=== PATIENT | female | born 1990 | race African-American/Black ===

== ENCOUNTER 2018-03-09 10:32 | Emergency (ER) | payer BC ==
[2018-03-09 11:27] LABS: #Basophils 0.1 thou/uL (0.0-0.2); #Eosinphils 0.1 thou/uL (0.0-0.7); #Lymphocytes 1.8 thou/uL (1.20-3.40); #Monocytes 0.6 thou/uL (0.11-0.59); #Neutrophils 7.7 thou/uL (1.40-6.50); %Basophils 0.7 % (0.0-1.0); %Eosinophils 0.6 % (0.0-10.0); %Lymphocytes 17.4 % (21.0-51.0); %Monocytes 5.5 % (0.0-10.0); %Neutrophils 75.9 % (42.0-75.0); Hemoglobin 12.1 g/dL (12.0-16.0); Mean Corpuscular HGB CONC 32.3 g/dL (32.0-36.0); Mean Corpuscular Hemoglobin 27.2 pg (27.0-31.0); Mean Corpuscular Volume 84.2 fl (81.0-99.0); Mean Platelet Volume 7.8 fL (7.4-10.4); Platelet Count 249 thou/uL (130-400); RBC Distribution Width 12.1 % (11.5-14.5); Red Blood Cell (RBC) Count 4.46 mill/uL (4.20-5.40); White Blood Cell (WBC) Count 10.2 thou/uL (4.8-10.8)
[2018-03-09 11:51] LABS: ALT (SGPT) 13 U/L (8-55); AST (SGOT) 22 U/L (5-34); Acetaminophen Less than 6.0 mcg/mL (10.0-30.0); Albumin 4.5 g/dL (3.5-5.0); Alcohol Less than 10 mg/dL (Less than 10); Alkaline Phosphatase 63 U/L (40-150); Anion Gap 13 mmol/L (10-20); BUN (Urea Nitrogen) 11 mg/dL (7.0-18.7); Bilirubin, Total 0.6 mg/dL (0.2-1.2); Calc. Creatinine Clearance 0 mL/min (70-130); Calcium 9.5 mg/dL (7.8-10.44); Carbon Dioxide 23 mmol/L (22-29); Chloride 108 mmol/L (98-107); Estimated GFR-MDRD Greater than 90; Glucose 117 mg/dL (70-105); Potassium 3.7 mmol/L (3.5-5.1); Protein, Total 7.5 g/dL (6.0-8.3); Salicylate Less than 8.0 mg/dL (15.0-30.0); Sodium 140 mmol/L (136-145)
[2018-03-09 11:52] LABS: Acetaminophen Less than 6.0 mcg/mL (10.0-30.0); Alcohol Less than 10 mg/dL (Less than 10); Salicylate Less than 8.0 mg/dL (15.0-30.0)
[2018-03-09 14:04] LABS: Bilirubin Negative (Negative); Blood, Urine Negative (Negative); Clarity CLOUDY (Clear); Glucose, Urine (Dipstick) Negative (Negative); Leukocyte Negative (Negative); Nitrite Negative (Negative); Protein, Urine (Dipstick) Negative (Neg-Trace); Specific Gravity, Urine 1.028 (1.002-1.036)
[2018-03-09 14:08] LABS: Pregnancy Test - Urine (BHCG) Negative (Negative); Specific Gravity 1.028 (1.002-1.036)
[2018-03-09 14:09] LABS: Pregu Control Background? CLEAR/WHITE (CLR/WHITE); Pregu Control Bar Appear? YES (CONTROL BAR)
[2018-03-09 14:14] LABS: Amphetamine Not Detected (NotDetected); Barbiturates Screen Not Detected (NotDetected); Benzodiazepine Screen Detected (NotDetected); Cocaine Metabolite Screen Not Detected (NotDetected); Medtox Control Line Valid? VALID (VALID); Medtox Reader # READER 1; Methadone Not Detected (NotDetected); Methamphetamine Not Detected (NotDetected); Opiate Screen Not Detected (NotDetected); Oxycodone Screen Not Detected (NotDetected); Phencyclidine (PCP) Not Detected (NotDetected); THC/Cannabinoid Screen Detected (NotDetected); Tricyclic Screen Not Detected (NotDetected)
[2018-03-09] MEDS ORDERED: Lorazepam 2 MG/ML VIAL ONE (20:17)
[2018-03-09] MEDS ORDERED: Haloperidol Lactate 5 MG/ML VIAL ONE (20:17)
[2018-03-09] MEDS ORDERED: diphenhydrAMINE 50 MG/ML VIAL ONE (20:17)
== END 2018-03-09 21:42 ==
LOC: ERS 10:32
DX: F31.9 Bipolar disorder, unspecified (principal)
CPT/HCPCS: 36415; 80053; 80306; 80307; 81003; 81025; 84443; 85025; 93005; 96372; J1200; J1630; J2060

== ENCOUNTER 2018-08-16 19:54 | Emergency (ER) | payer BC ==
[2018-08-16] MEDS ORDERED: Lorazepam 2 MG/ML VIAL ONE (20:31)
[2018-08-16 20:54] LABS: Amphetamine Not Detected (NotDetected); Barbiturates Screen Not Detected (NotDetected); Benzodiazepine Screen Not Detected (NotDetected); Cocaine Metabolite Screen Not Detected (NotDetected); Medtox Control Line Valid? VALID (VALID); Medtox Reader # READER 1; Methadone Not Detected (NotDetected); Methamphetamine Not Detected (NotDetected); Opiate Screen Not Detected (NotDetected); Oxycodone Screen Not Detected (NotDetected); Phencyclidine (PCP) Not Detected (NotDetected); THC/Cannabinoid Screen Detected (NotDetected); Tricyclic Screen Not Detected (NotDetected)
[2018-08-16 20:57] LABS: Acetaminophen Less than 6.0 mcg/mL (10.0-30.0); Alcohol Less than 10 mg/dL (Less than 10); Salicylate Less than 8.0 mg/dL (15.0-30.0)
[2018-08-16 20:59] LABS: Band 3 % (5-11); Hemoglobin 13.1 g/dL (12.0-16.0); Lymphocytes 14 % (21-51); MDiff Complete? YES; Mean Corpuscular HGB CONC 31.4 g/dL (32.0-36.0); Mean Platelet Volume 8.4 fL (7.4-10.4); Monocytes 3 % (0-10); Neutrophil 80 % (42-75); Platelet Count 268 thou/uL (130-400); RBC Distribution Width 12.1 % (11.5-14.5); Red Blood Cell (RBC) Count 4.84 mill/uL (4.20-5.40); White Blood Cell (WBC) Count 12.7 thou/uL (4.8-10.8)
[2018-08-16 21:03] LABS: Troponin I Less than 0.010 ng/mL (< 0.028)
[2018-08-16 21:13] LABS: ALT (SGPT) 14 U/L (8-55); AST (SGOT) 15 U/L (5-34); Albumin 4.7 g/dL (3.5-5.0); Alkaline Phosphatase 57 U/L (40-150); Anion Gap 12 mmol/L (10-20); BUN (Urea Nitrogen) 12 mg/dL (7.0-18.7); Bilirubin, Total 0.5 mg/dL (0.2-1.2); CK (CPK) 127 U/L (29-168); Calc. Creatinine Clearance 0 mL/min (70-130); Calcium 9.6 mg/dL (7.8-10.44); Carbon Dioxide 26 mmol/L (22-29); Chloride 104 mmol/L (98-107); Estimated GFR-MDRD 84; Globulin 2.9 g/dL (2.4-3.5); Glucose 134 mg/dL (70-105); Protein, Total 7.6 g/dL (6.0-8.3); Sodium 138 mmol/L (136-145)
== END 2018-08-16 22:43 | disposition home or self-care (01) ==
LOC: ERS 19:54
DX: T40.7X1A Poisoning by cannabis (derivatives), accidental (unintentional), initial encounter (principal); T50.3X1A Poisoning by electrolytic, caloric and water-balance agents, accidental (unintentional), initial encounter; F31.9 Bipolar disorder, unspecified; F20.9 Schizophrenia, unspecified
CPT/HCPCS: 80053; 80306; 80307; 82550; 82553; 84484; 85025; 93005; 96361; 96374; J2060

== ENCOUNTER 2018-08-24 10:03 | Inpatient (IN) | payer BC, OTHER ==
[2018-08-24 11:35] LABS: #Lymphocytes 1.2 thou/uL (1.20-3.40); #Neutrophils 8.4 thou/uL (1.40-6.50); %Basophils 0.4 % (0.0-1.0); %Eosinophils 0.2 % (0.0-10.0); %Lymphocytes 11.6 % (21.0-51.0); %Monocytes 9.4 % (0.0-10.0); %Neutrophils 78.4 % (42.0-75.0); Hemoglobin 12.9 g/dL (12.0-16.0); Mean Corpuscular HGB CONC 31.5 g/dL (32.0-36.0); Mean Corpuscular Hemoglobin 27.1 pg (27.0-31.0); Mean Corpuscular Volume 86.2 fL (78.0-98.0); Mean Platelet Volume 8.2 fL (7.4-10.4); Platelet Count 267 thou/uL (130-400); RBC Distribution Width 12.3 % (11.5-14.5); Red Blood Cell (RBC) Count 4.77 mill/uL (4.20-5.40); White Blood Cell (WBC) Count 10.7 thou/uL (4.8-10.8)
[2018-08-24 11:49] LABS: BHCG - Serum Negative (NEGATIVE); Pregs Control Background? CLEAR/WHITE (CLR/WHITE); Pregs Control Bar Appear? YES (CONTROL BAR)
[2018-08-24 11:52] LABS: ALT (SGPT) 87 U/L (8-55); AST (SGOT) 242 U/L (5-34); Acetaminophen Less than 6.0 mcg/mL (10.0-30.0); Albumin 4.5 g/dL (3.5-5.0); Alcohol Less than 10 mg/dL (Less than 10); Alkaline Phosphatase 57 U/L (40-150); Anion Gap 17 mmol/L (10-20); BUN (Urea Nitrogen) 12 mg/dL (7.0-18.7); Bilirubin, Total 0.7 mg/dL (0.2-1.2); Calc. Creatinine Clearance 0 mL/min (70-130); Calcium 9.3 mg/dL (7.8-10.44); Carbon Dioxide 22 mmol/L (22-29); Chloride 100 mmol/L (98-107); Estimated GFR-MDRD 90; Glucose 70 mg/dL (70-105); Potassium 4.4 mmol/L (3.5-5.1); Protein, Total 7.5 g/dL (6.0-8.3); Salicylate Less than 8.0 mg/dL (15.0-30.0); Sodium 135 mmol/L (136-145)
[2018-08-24 12:08] LABS: Thyroid Stimulating Hormone 0.5661 uIU/mL (0.35-4.94)
[2018-08-24] MEDS ORDERED: Haloperidol Lactate 5 MG/ML VIAL ONE ×2 (12:09→13:33)
--- NOTE | 2018-08-24 13:32 | RAD ---
3 VIEWS LEFT HAND: Date: 08/24/18 HISTORY: Trauma. FINDINGS: AP, lateral, and oblique views of left hand obtained. No definite evidence of left hand fractures, alcantar bluxations, or bony lesions seen. IMPRESSION: Normal 3 views left hand. POS: [facility]
--- NOTE | 2018-08-24 13:33 | RAD ---
PORTABLE CHEST 1 VIEW: Date: 08/24/18 Time: 1027 hours HISTORY: Chest pain. FINDINGS: The heart size is normal. The lungs are expanded and clear. The bony structures are unremarkable. IMPRESSION: Normal exam. POS: [facility]
--- NOTE | 2018-08-24 13:34 | RAD ---
4 VIEWS LEFT KNEE: Date: 08/24/18 COMPARISON: None. HISTORY: Left knee pain. FINDINGS: Four views of the left knee show no evidence of acute fracture or dislocation. No knee effusion is se en. No degenerative changes are present. IMPRESSION: No evidence of acute osseous abnormality. POS: [facility]
--- NOTE | 2018-08-24 13:36 | RAD ---
RIGHT KNEE 4 VIEWS: Date: 08/24/18 HISTORY: Trauma. Right knee pain. FINDINGS/IMPRESSION: No acute fracture or dislocation is seen. POS: [facility]
--- NOTE | 2018-08-24 13:51 | RAD ---
RADIOGRAPH RIGHT HAND 3 VIEWS: Date: 08/24/18 HISTORY: 28-year-old female with traumatic right hand pain. FINDINGS: No fracture is identified. No dislocation or any other focal osseous abnormality. No radiopaque forei gn body. IMPRESSION: Negative. POS: [facility]
[2018-08-24 14:10] LABS: Bilirubin Small (Negative); Blood, Urine Moderate (Negative); Clarity CLEAR (Clear); Glucose, Urine (Dipstick) Negative (Negative); Leukocyte Negative (Negative); Nitrite Negative (Negative); Protein, Urine (Dipstick) Trace mg/dL (Neg-Trace); Specific Gravity, Urine 1.023 (1.002-1.036)
[2018-08-24 14:12] LABS: Bacteria/HPF None Seen HPF (None Seen); RBC/HPF 21-50 HPF (0-3); WBC/HPF 0-3 HPF (0-3)
[2018-08-24 14:16] LABS: Pathc Cast-AUWi Flag 7.55 (0-2.49)
[2018-08-24 14:19] LABS: Amphetamine Not Detected (NotDetected); Barbiturates Screen Not Detected (NotDetected); Benzodiazepine Screen Not Detected (NotDetected); Cocaine Metabolite Screen Not Detected (NotDetected); Medtox Control Line Valid? VALID (VALID); Medtox Reader # READER 4; Methadone Not Detected (NotDetected); Methamphetamine Not Detected (NotDetected); Opiate Screen Not Detected (NotDetected); Oxycodone Screen Not Detected (NotDetected); Phencyclidine (PCP) Not Detected (NotDetected); THC/Cannabinoid Screen Detected (NotDetected); Tricyclic Screen Not Detected (NotDetected)
[2018-08-24 14:42] LABS: Hyaline Casts/LPF 0-3 HYALINE CAST LPF (0-3 Hyaline); Other Casts/LPF None Seen LPF (0-3 Hyaline); Transitional Epithelial 0-3 HPF (0-3)
[2018-08-24] MEDS ORDERED: Lorazepam 2 MG/ML VIAL SLOW IVP PRN (16:12)
[2018-08-24] MEDS ORDERED: Acetaminophen 325 MG TAB PO PRN (16:13)
[2018-08-24] MEDS ORDERED: Ondansetron PF 4 MG/2 ML Vial IVP PRN (16:13)
[2018-08-24] MEDS ORDERED: Calcium Carbonate 500 MG ChewTAB PO PRN (16:13)
[2018-08-24] MEDS ORDERED: Ondansetron ODT 4 MG TAB PO PRN (16:13)
[2018-08-24] MEDS ORDERED: Senokot S 8.6-50 MG TAB PO PRN (16:13)
[2018-08-24] MEDS: Sodium Chloride 0.9% 1,000 ML IV SCH ×2 (17:16→22:34)
[2018-08-24 17:21] VITALS: BMI 25.6
--- NOTE | 2018-08-24 17:44 | HP ---
DATE OF ADMISSION: 08/24/2018 PRIMARY CARE PHYSICIAN: The patient is an inmate. CHIEF COMPLAINT: The patient was brought into the emergency room for medical clearance. HISTORY OF PRESENT ILLNESS: The patient is a 28-year-old female with schizophrenia and bipolar disor earnest, who was brought in by [place] [employer] for medical clearance to the emergency room. Herlinda ent was arrested approximately 2 days ago per ER physician. She has been agitated and has been punch ing quintana per ER report. She also has history of polysubstance abuse including K2. At this time, th e patient is confused and agitated and not much information is available from the patient. She denie s any chest pain, shortness of breath, palpitations, double vision, blurring of vision, nausea, vomit ing, abdominal pain. In the emergency room, initial vital signs showed temperature 97.7, respiration 18, pulse rate of 92 with a blood pressure of 122/80 with O2 saturation 100% on room air. She was found to have CK level of 9125. She was started on IV fluids. Due to agitation, she also received 5 mg IV Haldol. PAST MEDICAL HISTORY: Bipolar disorder/schizophrenia. PAST SURGICAL HISTORY: Unable to obtain from the patient due to current cognition. ALLERGIES, HOME MEDICATIONS, SOCIAL HISTORY, FAMILY HISTORY, AND REVIEW OF SYSTEMS: Cannot be obtain ed from the patient due to current cognitive status. The patient drinks alcohol every day. She also has history of drug abuse. PHYSICAL EXAMINATION: VITAL SIGNS: As discussed above. GENERAL: A 28-year-old female, agitated. HEENT: Head atraumatic, normocephalic. Sclerae are anicteric. Moist mucous membranes. No oral les ion. NECK: Supple. No JVD, no carotid bruit. LUNGS: Clear to auscultation bilaterally. No wheezing, rales, or rhonchi. HEART: S1, S2 present. Regular rate and rhythm. No murmur, rubs, or gallops appreciated. ABDOMEN: Soft, nontender, bowel sounds present. EXTREMITIES: No edema or calf tenderness in lower extremities. There is mild erythema and swelling in bilateral hands. There are also multiple ablations noted over the hands. NEUROLOGIC: The patient is moving all 4 extremities spontaneously. She follows commands to some ext ent. She walked to the bathroom earlier without any ataxia. PSYCHIATRY: As discussed above. LYMPH NODES: No palpable lymph nodes in the neck. PERIPHERAL VASCULAR: Radial pulses palpable bilaterally. MUSCULOSKELETAL: No joint swelling or tenderness. LABORATORY FINDINGS: CK 9125. test negative. Sodium 135, potassium 4.4, chloride 100, bi carb 22, BUN 12, creatinine 0.91, AST 242, ALT 87, alkaline phosphatase 57. WBC 10.7 with hemoglobin 12.9. Urine drug screen was positive for cannabinoid. Urinalysis was negat [facility] for WBC or bacteria. Chest x-ray by my review was negative for acute findings. X-ray of bilateral knees and bilateral ordaz ds by my review was negative for acute fractures. EKG by my review showed sinus tachycardia. IMPRESSION: 1. Rhabdomyolysis. 2. Encephalopathy, probably secondary to untreated schizophrenia/bipolar disorder. 3. Polysubstance abuse. The patient is positive for cannabinoid. She also has a history of tobacco , alcohol, and cocaine abuse per previous ER visits. 4. Sinus tachycardia secondary to agitation. PLAN: The patient will be monitored on the medical floor. We will continue IV hydration. We will t ry to control agitation with Ativan. If not, then, we will try antipsychotics. Plan of care was discussed with the patient at the bedside.
[2018-08-24] MEDS: Ziprasidone 20 MG CAP PO SCH (22:29)
[2018-08-25 04:18] LABS: #Basophils 0.1 thou/uL (0.0-0.2); #Eosinphils 0.1 thou/uL (0.0-0.7); #Lymphocytes 2.3 thou/uL (1.20-3.40); #Monocytes 0.6 thou/uL (0.11-0.59); #Neutrophils 3.4 thou/uL (1.40-6.50); %Basophils 1.3 % (0.0-1.0); %Eosinophils 1.5 % (0.0-10.0); %Lymphocytes 35.7 % (21.0-51.0); %Monocytes 9.3 % (0.0-10.0); %Neutrophils 52.2 % (42.0-75.0); Hemoglobin 11.7 g/dL (12.0-16.0); Mean Corpuscular HGB CONC 31.4 g/dL (32.0-36.0); Mean Corpuscular Hemoglobin 27.2 pg (27.0-31.0); Mean Corpuscular Volume 86.6 fL (78.0-98.0); Mean Platelet Volume 8.6 fL (7.4-10.4); Platelet Count 220 thou/uL (130-400); RBC Distribution Width 12.3 % (11.5-14.5); Red Blood Cell (RBC) Count 4.28 mill/uL (4.20-5.40); White Blood Cell (WBC) Count 6.5 thou/uL (4.8-10.8)
[2018-08-25 04:34] LABS: ALT (SGPT) 82 U/L (8-55); AST (SGOT) 217 U/L (5-34); Albumin 3.3 g/dL (3.5-5.0); Alkaline Phosphatase 46 U/L (40-150); Anion Gap 10 mmol/L (10-20); BUN (Urea Nitrogen) 5 mg/dL (7.0-18.7); Bilirubin, Total 0.5 mg/dL (0.2-1.2); Calc. Creatinine Clearance 131 mL/min (70-130); Calcium 8.1 mg/dL (7.8-10.44); Carbon Dioxide 21 mmol/L (22-29); Chloride 110 mmol/L (98-107); Estimated GFR-MDRD Greater than 90; Globulin 2.2 g/dL (2.4-3.5); Glucose 82 mg/dL (70-105); Magnesium 1.8 mg/dL (1.6-2.6); Phosphorus 2.3 mg/dL (2.3-4.7); Potassium 3.8 mmol/L (3.5-5.1); Protein, Total 5.5 g/dL (6.0-8.3); Sodium 137 mmol/L (136-145)
[2018-08-25] MEDS: Sodium Chloride 0.9% 1,000 ML IV SCH ×5 (04:36→20:06)
[2018-08-25 04:45] LABS: CK (CPK) 7911 U/L (29-168)
[2018-08-25] MEDS: Ziprasidone 20 MG CAP PO SCH ×2 (08:00→20:03)
[2018-08-25] MEDS: Folic Acid 1 MG TAB PO SCH (08:00)
--- NOTE | 2018-08-25 12:34 | EKG ---
Test Reason : STAT Blood Pressure : / mmHG Vent. Rate : 119 BPM Atrial Rate : 119 BPM P-R Int : 116 ms QRS Dur : 080 ms QT Int : 320 ms P-R-T Axes : 069 071 034 degrees QTc Int : 450 ms Sinus tachycardia Nonspecific T wave abnormality Abnormal ECG Confirmed by DERIAN KIRAN ([id number]) on 08/25/2018 12:33:28 PM Referred By: BONIFACIO Confirmed By:DERIAN KIRAN
--- NOTE | 2018-08-25 22:47 | PDOC.PN ---
- Subjective Encounter Start Date: 08/25/18 Encounter Start Time: 10:30 Patient seen and examined for Rhabdomyolysis. No new complaints. No overnight events - Objective Resuscitation Status: Resuscitation Status FULL:Full Resuscitation MAR Reviewed: Yes Vital Signs & Weight: Vital Signs (12 hours) Temp Pulse Resp BP Pulse Ox 08/25/18 20:00 98 08/25/18 19:48 99.2 F 94 16 121/75 98 08/25/18 16:32 99.2 F 92 16 119/71 98 08/25/18 11:18 99.0 F 96 18 135/83 98 Weight Admit Weight 158 lb 11.725 oz Weight 158 lb 11.725 oz I&O: 08/24/18 08/25/18 08/26/18 06:59 06:59 06:59 Intake Total 3280 Balance 3280 Result Diagrams: 08/25/18 03:46 08/25/18 03:46 Phys Exam - Physical Examination Constitutional: NAD Respiratory: no wheezing, no rhonchi Cardiovascular: RRR, no rub Gastrointestinal: soft, non-tender, positive bowel sounds Musculoskeletal: no edema Neurological: moves all 4 limbs Dx/Plan - Plan DVT proph w/SCDs IMPRESSION: 1. Rhabdomyolysis. 2. Encephalopathy, probably secondary to untreated schizophrenia/bipolar disorder. 3. Polysubstance abuse. The patient is positive for cannabinoid. She also has a history of tobacco, alcohol, and cocaine abuse per previous ER visits. 4. Sinus tachycardia secondary to agitation. PLAN: Cont IVF CK in AM BMP in AM Resume home meds (List obtained from group home) Review of Systems - Review of Systems Respiratory: negative: Cough, Dry, Shortness of Breath, Hemoptysis, SOB with Excertion, Pleuritic Pain, Sputum, Wheezing Cardiovascular: negative: chest pain, palpitations, orthopnea, paroxysmal nocturnal dyspnea, edema, light headedness, other - Medications/Allergies Allergies/Adverse Reactions: Allergies Allergy/AdvReac Type Severity Reaction Status Date / Time No Known Allergies Allergy Unverified 08/24/18 16:25 Medications: Current Medications Acetaminophen (Tylenol) 650 mg PO Q4H PRN PRN Reason: Headache/Fever/Mild Pain (1-3) Calcium Carbonate (Tums) 1,000 mg PO Q4H PRN PRN Reason: Heartburn or Indigestion Diphenhydramine HCl (Benadryl) 25 mg PO TID [facility] Divalproex Sodium (Depakote) 500 mg PO BID [facility] Enoxaparin Sodium (Lovenox) 40 mg SC 0900 [facility] Folic Acid (Folvite) 1 mg PO DAILY [facility] Last Admin: 08/25/18 08:00 Dose: 1 mg Haloperidol (Haldol) 0.5 mg PO TID [facility] Sodium Chloride (Normal Saline 0.9%) 1,000 mls @ 200 mls/hr IV .Q5H [facility] Last Admin: 08/25/18 20:06 Dose: Not Given Lorazepam (Ativan) 1 mg SLOW IVP Q4H PRN PRN Reason: Anxiety/Agitation Last Admin: 08/24/18 17:17 Dose: 1 mg Ondansetron HCl (Zofran Odt) 4 mg PO Q6H PRN PRN Reason: Nausea/Vomiting Ondansetron HCl (Zofran) 4 mg IVP Q6H PRN PRN Reason: Nausea/Vomiting Senna/Docusate Sodium (Senokot S) 2 tab PO BID PRN PRN Reason: Constipation Sodium Chloride (Flush - Normal Saline) 10 ml IVF PRN PRN PRN Reason: Saline Flush Thiamine HCl (Thiamine) 100 mg PO DAILY [facility] Last Admin: 08/25/18 08:00 Dose: 100 mg
[2018-08-26] MEDS: Sodium Chloride 0.9% 1,000 ML IV SCH ×5 (02:56→23:09)
[2018-08-26 05:19] LABS: Anion Gap 13 mmol/L (10-20); BUN (Urea Nitrogen) 4 mg/dL (7.0-18.7); Calc. Creatinine Clearance 136 mL/min (70-130); Calcium 8.7 mg/dL (7.8-10.44); Carbon Dioxide 23 mmol/L (22-29); Chloride 107 mmol/L (98-107); Estimated GFR-MDRD Greater than 90; Glucose 87 mg/dL (70-105); Magnesium 1.9 mg/dL (1.6-2.6); Phosphorus 3.1 mg/dL (2.3-4.7); Potassium 3.6 mmol/L (3.5-5.1); Sodium 139 mmol/L (136-145)
[2018-08-26 05:25] LABS: CK (CPK) 4267 U/L (29-168)
[2018-08-26] MEDS: Divalproex Sodium DR 500 MG TAB PO SCH ×2 (08:09→20:16)
[2018-08-26] MEDS: diphenhydrAMINE 25 MG CAP PO SCH ×3 (08:09→20:16)
[2018-08-26] MEDS: Folic Acid 1 MG TAB PO SCH (08:10)
[2018-08-26] MEDS: Haloperidol 1 MG TAB PO SCH ×3 (08:10→20:16)
[2018-08-26] MEDS: Enoxaparin Sodium 40 MG/0.4 ML SYRINGE SC SCH (08:10)
--- NOTE | 2018-08-26 11:11 | PDOC.PN ---
- Subjective Encounter Start Date: 08/26/18 Encounter Start Time: 07:45 -: old records requested/rev pt is anxious to leave hospital, she has diffuse muscle pain, no fever, she is also not in her right mind when I talked to her - Objective Resuscitation Status: Resuscitation Status FULL:Full Resuscitation MAR Reviewed: Yes Vital Signs & Weight: Vital Signs (12 hours) Temp Pulse Resp BP Pulse Ox 08/26/18 08:00 97 08/26/18 07:29 97.9 F 76 16 118/74 97 08/26/18 04:42 98.5 F 74 18 121/73 98 Weight Admit Weight 158 lb 11.725 oz Weight 158 lb 11.725 oz I&O: 08/25/18 08/26/18 08/27/18 06:59 06:59 05:59 Intake Total 3280 240 Balance 3280 240 Result Diagrams: 08/25/18 03:46 08/26/18 04:38 Phys Exam - Physical Examination Constitutional: NAD HEENT: PERRLA, moist MMs, sclera anicteric Neck: no JVD, supple Respiratory: no wheezing, no rales, no rhonchi Cardiovascular: RRR, no significant murmur, no rub Gastrointestinal: soft, non-tender, no distention, positive bowel sounds Musculoskeletal: no edema, pulses present Neurological: non-focal, normal sensation, moves all 4 limbs Lymphatic: no nodes Deviation from normal: anxious Skin: no rash, normal turgor Dx/Plan (1) Abnormal LFTs Code(s): R94.5 - ABNORMAL RESULTS OF LIVER FUNCTION STUDIES Status: Acute (2) Rhabdomyolysis Code(s): M62.82 - RHABDOMYOLYSIS Status: Acute (3) Toxic metabolic encephalopathy Code(s): G92 - TOXIC ENCEPHALOPATHY Status: Acute (4) Alcohol abuse Code(s): F10.10 - ALCOHOL ABUSE, UNCOMPLICATED Status: Chronic (5) Cannabis abuse Code(s): F12.10 - CANNABIS ABUSE, UNCOMPLICATED Status: Chronic (6) Tobacco abuse Code(s): Z72.0 - TOBACCO USE Status: Chronic - Plan cont current plan of care * total CK still very high, she needs IVF * will give her IV ativan as needed for her anxiety and agitation * medication reviewed as below * symptomatic treatment * monitor CK. Review of Systems - Review of Systems ENT: negative: Ear Pain, Ear Discharge, Nose Pain, Nose Discharge, Nose Congestion, Mouth Pain, Mouth Swelling, Throat Pain, Throat Swelling, Other Respiratory: negative: Cough, Dry, Shortness of Breath, Hemoptysis, SOB with Excertion, Pleuritic Pain, Sputum, Wheezing Cardiovascular: negative: chest pain, palpitations, orthopnea, paroxysmal nocturnal dyspnea, edema, light headedness, other Gastrointestinal: negative: Nausea, Vomiting, Abdominal Pain, Diarrhea, Constipation, Melena, Hematochezia, Other Genitourinary: negative: Dysuria, Frequency, Incontinence, Hematuria, Retention , Other Musculoskeletal: negative: Neck Pain, Shoulder Pain, Arm Pain, Back Pain, Hand Pain, Leg Pain, Foot Pain, Other Other: not reliable due to her level of cognitive status - Medications/Allergies Allergies/Adverse Reactions: Allergies Allergy/AdvReac Type Severity Reaction Status Date / Time No Known Allergies Allergy Unverified 08/24/18 16:25 Medications: Current Medications Acetaminophen (Tylenol) 650 mg PO Q4H PRN PRN Reason: Headache/Fever/Mild Pain (1-3) Calcium Carbonate (Tums) 1,000 mg PO Q4H PRN PRN Reason: Heartburn or Indigestion Diphenhydramine HCl (Benadryl) 25 mg PO TID [facility] Last Admin: 08/26/18 08:09 Dose: 25 mg Divalproex Sodium (Depakote) 500 mg PO BID [facility] Last Admin: 08/26/18 08:09 Dose: 500 mg Enoxaparin Sodium (Lovenox) 40 mg SC 0900 [facility] Last Admin: 08/26/18 08:10 Dose: 40 mg Folic Acid (Folvite) 1 mg PO DAILY [facility] Last Admin: 08/26/18 08:10 Dose: 1 mg Haloperidol (Haldol) 0.5 mg PO TID [facility] Last Admin: 08/26/18 08:10 Dose: 0.5 mg Sodium Chloride (Normal Saline 0.9%) 1,000 mls @ 200 mls/hr IV .Q5H [facility] Last Admin: 08/26/18 08:09 Dose: 1,000 mls Lorazepam (Ativan) 1 mg SLOW IVP Q4H PRN PRN Reason: Anxiety/Agitation Last Admin: 08/24/18 17:17 Dose: 1 mg Ondansetron HCl (Zofran Odt) 4 mg PO Q6H PRN PRN Reason: Nausea/Vomiting Ondansetron HCl (Zofran) 4 mg IVP Q6H PRN PRN Reason: Nausea/Vomiting Senna/Docusate Sodium (Senokot S) 2 tab PO BID PRN PRN Reason: Constipation Sodium Chloride (Flush - Normal Saline) 10 ml IVF PRN PRN PRN Reason: Saline Flush Thiamine HCl (Thiamine) 100 mg PO DAILY [facility] Last Admin: 08/26/18 08:10 Dose: 100 mg
[2018-08-26] MEDS ORDERED: Lorazepam 2 MG/ML VIAL SLOW IVP PRN (11:12)
--- NOTE | 2018-08-26 21:15 | EKG ---
Test Reason : Blood Pressure : / mmHG Vent. Rate : 106 BPM Atrial Rate : 106 BPM P-R Int : 116 ms QRS Dur : 068 ms QT Int : 350 ms P-R-T Axes : 090 061 044 degrees QTc Int : 464 ms Sinus tachycardia Otherwise normal ECG Confirmed by JUDY GRANT D.O. ([id number]), video effects editor ADAN NOVA ([id number]) on 08/26/2018 9:14:40 PM Referred By: Confirmed By:JUDY GRANT D.O.
[2018-08-27] MEDS: Sodium Chloride 0.9% 1,000 ML IV SCH ×2 (04:30→09:50)
[2018-08-27 08:07] VITALS: TEMP 98.8
[2018-08-27] MEDS: diphenhydrAMINE 25 MG CAP PO SCH (09:49)
[2018-08-27] MEDS: Folic Acid 1 MG TAB PO SCH (09:49)
[2018-08-27] MEDS: Divalproex Sodium DR 500 MG TAB PO SCH (09:49)
[2018-08-27] MEDS: Haloperidol 1 MG TAB PO SCH (09:49)
[2018-08-27] MEDS: Enoxaparin Sodium 40 MG/0.4 ML SYRINGE SC SCH (09:49)
[2018-08-27 10:39] VITALS: BP 130/78
--- NOTE | 2018-08-27 10:41 | DIS ---
DATE OF ADMISSION: 08/24/2018 DATE OF DISCHARGE: 08/27/2018 PRIMARY CARE PHYSICIAN: [facility] call admission. DISCHARGE DISPOSITION: Shelter. PRIMARY DISCHARGE DIAGNOSES: 1. Acute rhabdomyolysis, improving. 2. Toxic metabolic encephalopathy. 3. Abnormal liver function tests due to acute rhabdomyolysis. SECONDARY DISCHARGE DIAGNOSES: Schizophrenia/bipolar disorder, alcohol abuse, cannabis abuse, tobacc o abuse. PRIMARY PROCEDURE/OPERATION: None. RADIOLOGICAL INVESTIGATION: Hand x-ray, knee x-ray and chest x-ray were normal. SIGNIFICANT LABORATORY DATA: WBC 6.5, hemoglobin 11.7, platelet 220,000. Sodium 139, potassium 3.6, BUN 4, creatinine 0.71. CK 1868. test negative. Urinalysis unremarkable. Urine drug sc reen positive for cannabinoids. Serum drug screen negative. DISCHARGE MEDICATIONS: The patient will continue all her previous home medications, Benadryl 25 mg t .i.d. p.r.n., Depakote 500 mg b.i.d., haloperidol 0.5 mg p.o. t.i.d. p.r.n. CONTRAINDICATIONS: None. CODE STATUS: Full code. INPATIENT CONSULTANTS: None. ALLERGIES: No known drug allergy. DISCHARGE PLAN: The patient is discharged back to [facility]. The patient will need MR evaluation at [facility]. HOSPITAL COURSE: A 28-year-old female who was admitted by Dr. Vargas. Please see his H and P for fur ther details. She was confused when she arrived to the ER. She was found with rhabdomyolysis. She clinically appeared dehydrated. On admission, her total CK was 7911, which has improved to 1868 with IV fluid. Her renal function is normal. Because of rhabdomyolysis, her LFT was abnormal, that was also related with her alcohol abuse. The patient is making clear urine. Her renal function is samantha l. She is tolerating p.o. well. She is ambulatory. The patient is seen and examined at bedside today. She is medically stable, but she needs psychiatri c care at [facility]. PHYSICAL EXAMINATION: VITAL SIGNS: Today, temperature 98.3, pulse 92, respiratory rate 18, saturation 98% on room air, blo od pressure 126/78. Weight 158 pounds. Her medical examination and physical examination is completely normal. I spoke with the officer that this patient will need MHMR evaluation and psychiatric care at [facility]. The patient is medically stable for discharge today.
== END 2018-08-27 11:47 | DRG 557 ==
LOC: ERS 10:03 → T4-A 16:30
PROVIDERS: ADMIT Internal Medicine; ATTEND Internal Medicine
DX: M62.82 Rhabdomyolysis (principal); G92 Toxic encephalopathy; F20.9 Schizophrenia, unspecified; F31.9 Bipolar disorder, unspecified; R94.5 Abnormal results of liver function studies; F10.10 Alcohol abuse, uncomplicated; F12.10 Cannabis abuse, uncomplicated; F17.210 Nicotine dependence, cigarettes, uncomplicated; F19.10 Other psychoactive substance abuse, uncomplicated; R00.0 Tachycardia, unspecified; Z91.81 History of falling
CPT/HCPCS: 36415; 51701; 71045; 80048; 80053; 80306; 80307; 81003; 81015; 82550; 83735; 84100; 84443; 84703; 85025; 85652; 86140; 93005; 93010; 96361; 96374; A4353; J1630; J1650; J2060